=== PATIENT | female | born 1985 | race Caucasian/White ===

== ENCOUNTER 2017-07-20 02:33 | Inpatient (IN) | payer MEDICAID ==
[~2017-07-20] VITALS: Ht 162.6 cm; Wt 76.0 kg
[2017-07-20] VITALS (37 sets, daily range): BP systolic 89–128; BP diastolic 54–83; PULSE 55–86; RESP 14–20; TEMP 97.6–98.2; O2SAT 100
[~2017-07-20 02:33] MED LIST: IBUP600 PO; OXYC1SOL5 PO; PERI8.6T; PERI8.6T PO; PRENCAP6 PO
[2017-07-20] MEDS ORDERED: LACTATED RINGER'S 1000 ML INJ 1,000 ML IV PRN (03:01)
--- NOTE | 2017-07-20 03:08 | PD ---
HPI Chief Complaint contractions Date Seen: Jul 20, 2017 Time Seen: 03:03 Travel History International Travel<30 Days: No Contact w/Intl Traveler<30Days: No Known Affected Area: No History of Present Illness HPI 31uyo at 39w2d comes in with contractions for several hours. Denies rupture of membranes or vaginal bleeding. GBS positive. Uncomplicated course. Weeks Gestation: 39 Para: 2 : 4 Miscarriage: 1 History Past Medical History Medical History: Denies Significant Hx Obstetric History Obstetric History x 2 Past Surgical History Narrative Surgical tonsils Family History Family History: Negative Social History Alcohol Use: No Tobacco Use: No Substance Abuse: No Allergies-Medications (Allergen,Severity, Reaction): Coded Allergies: No Known Allergies (Unverified , 02/13/16) Home Meds Active Scripts Sennosides-Docusate Sodium (Candelaria-Colace 8.6-50 mg) 1 Tab Tab, 2 TAB PO Q12H Y for CONSTIPATION, #30 TAB Prov:Alex Martinez MD 02/15/16 Oxycodone W/ Acetaminophen (Oxycodone/Acetaminophen 5-325 mg/5Ml) 5 mg/325 mg Tab, 1 TAB PO Q4H for moderate pain, #15 TAB Prov:Alex Martinez MD 02/15/16 Ibuprofen (Motrin 600 Mg Tab) 600 Mg Tab, 600 MG PO Q6H for Pain Management, # 30 TAB 1 Refill Prov:Alex Martinez MD 02/15/16 Reported Medications Sennosides-Docusate Sodium (Candelaria-Colace 8.6-50 mg) 1 Tab Tab 02/13/16 Mv & Min W/Fe Fumarat ( 1) Cap, 1 CAP PO DAILY, CAP 02/13/16 Review of Systems Except as stated in HPI: all other systems reviewed are Neg Physical Exam Narrative GENERAL: Well-nourished, well-developed patient. SKIN: Warm and dry. HEAD: Normocephalic and atraumatic. EYES: No scleral icterus. No injection or drainage. ENT: No nasal drainage noted. Mucous membranes pink. Airway patent. NECK: Supple, trachea midline. No JVD. CARDIOVASCULAR: Regular rate and rhythm without murmurs, gallops, or rubs. RESPIRATORY: Breath sounds equal bilaterally. No accessory muscle use. ABDOMEN/GI: Abdomen soft, non-tender, bowel sounds present, no rebound, no guarding Gravid to [38-] weeks size Fundal Height: [-] GENITOURINARY: External Genitalia: intact and normal in appearance BUS glands: [-nl] Cervix: [-] mid Dilatation: [-] 8 Effacement: [-] 90 Station: [-] -2 Presentation: [-vtx] Membranes: [intact or ruptured]intact Uterine Contractions: [-]every 5 FHT's: Category: [-1] Baseline: [140-] Reactive: [-mod] Variability: [-mod] Decels: [-absent] EXTREMITIES: No cyanosis or edema. BACK: Nontender without obvious deformity. No CVA tenderness. NEUROLOGICAL: Awake and alert. Motor and sensory grossly within normal limits. Five out of 5 muscle strength in all muscle groups. Normal speech. Data Data Vital Signs Reviewed: Yes Orders Orders Ob (2e) Additional Admit Info (07/20/17 02:58) Admit To Inpatient (07/20/17 ) Vital Signs (Adult) .Per protocol (07/20/17 03:01) Heart (07/20/17 03:01) Amnioinfusion (07/20/17 03:01) Urinary Catheter Management .ONCE (07/20/17 03:01) Lactated Ringer's 1000 Ml Inj (Lr 1000 M (07/20/17 03:01) Lactated Ringer's 1000 Ml Inj (Lr 1000 M (07/20/17 03:01) Sodium Chlorid 0.9% 500 Ml Inj (Ns 500 M (07/20/17 03:15) Sodium Chlor 0.9% 1000 Ml Inj (Ns 1000 M (07/20/17 03:21) Lidocaine 1% Inj (50 Ml) (Xylocaine 1% I (07/20/17 03:15) Citric Acid-Sodium Citrate Liq (Bicitra (07/20/17 03:15) Ondansetron Inj (Zofran Inj) (07/20/17 03:15) Fentanyl Inj (Fentanyl Inj) (07/20/17 03:15) Fentanyl Inj (Fentanyl Inj) (07/20/17 03:15) Penicillin G Potassium Inj (Pfizerpen-G (07/20/17 03:15) Penicillin G Potassium Inj (Pfizerpen-G (07/20/17 07:15) Complete Blood Count With Diff (07/20/17 03:01) Hold Clot (07/20/17 03:01) Abo/Rh Blood Type (07/20/17 03:01) Drug Screen, Random Urine (07/20/17 03:01) Resp Oxygen Non Rebreathe Mask (07/20/17 ) ^ Epidural / Intrathecal Infus (07/20/17 03:01) Oxytocin 30 Units-500ml Premix (Pitocin (07/20/17 03:15) Lidocaine 1% Inj (50 Ml) (Xylocaine 1% I (07/20/17 03:15) Light Mineral Oil (Muri-Lube Oil) (07/20/17 03:15) Inpatient Certification (07/20/17 ) Group B Strep: Positive MDM Medical Record Reviewed: Yes Plan 31 yo at 39-40 weeks gestation in active labor. Start penicillin for GBS positive status. Dr Rajput immediately contacted for delivery, (covering for Dr Martinez) Diagnosis Diagnosis: Primary Impression: 39 weeks gestation of Additional Impressions: Positive GBS test Precipitate labor, antepartum Rozina Harrell MD Jul 20, 2017 03:08
[2017-07-20] MEDS: LACTATED RINGER'S 1000 ML INJ 1,000 ML IV SCH ×2 (03:09→03:49)
[2017-07-20] MEDS ORDERED: PENICILLIN G POTASSIUM INJ 5,000,000 UNITS in SODIUM CHLORIDE 0.9% INJ 100 ML IV ONE (03:15)
[2017-07-20] MEDS ORDERED: SODIUM CHLORID 0.9% 500 ML INJ 500 ML IV PRN (03:15)
[2017-07-20] MEDS ORDERED: LIDOCAINE HCL 1% 50 ML VIAL I-DERMAL PRN (03:15)
[2017-07-20] MEDS ORDERED: CITRIC ACID-SODIUM CITRATE LIQ 30 ML UDC PO SCH (03:15)
[2017-07-20] MEDS ORDERED: LIDOCAINE HCL 1% 50 ML VIAL INFIL PRN (03:15)
[2017-07-20] MEDS ORDERED: OXYTOCIN 30 UNITS-500ML PREMIX 500 ML IV ONE (03:15)
[2017-07-20] MEDS ORDERED: ONDANSETRON HCL 4 MG/2 ML VIAL IV PUSH PRN (03:15)
[2017-07-20] MEDS ORDERED: MINERAL OIL 10 ML VIAL TOPICAL PRN (03:15)
[2017-07-20 03:16] LABS: AUTOMATED NEUTROPHIL # 9.2 TH/MM3 (1.8-7.7); BASOPHIL # 0.1 TH/MM3 (0-0.2); BASOPHIL % 0.7 % (0.0-2.0); EOSINOPHIL # 0.1 TH/MM3 (0-0.4); EOSINOPHIL % 0.8 % (0.0-4.0); HEMATOCRIT 42.3 % (35.0-46.0); HEMO FLAGS DIFF FINAL; LYMPH % 17.5 % (9.0-44.0); LYMPHOCYTE # 2.2 TH/MM3 (1.0-4.8); MEAN CELL VOLUME 90.7 FL (80.0-100.0); MEAN CORPUSCULAR HEMOGLOBIN 29.4 PG (27.0-34.0); MEAN CORPUSCULAR HGB CONC 32.4 % (32.0-36.0); MONO % 6.7 % (0.0-8.0); NEUT % 74.3 % (16.0-70.0); PLATELET COUNT 215 TH/MM3 (150-450); RED BLOOD COUNT 4.66 MIL/MM3 (4.00-5.30); RED CELL DISTRIBUTION WIDTH 14.3 % (11.6-17.2); WHITE BLOOD COUNT 12.4 TH/MM3 (4.0-11.0)
[2017-07-20] MEDS ORDERED: fentaNYL 2MCG-BUPIV 0.125% INJ 100 ML ONE (03:20)
[2017-07-20] MEDS ORDERED: ePHEDrine/NS 25 MG/5 ML SYR ONE (03:20)
[2017-07-20] MEDS ORDERED: SODIUM CHLOR 0.9% 1000 ML INJ 1,000 ML IV PRN (03:21)
[2017-07-20] MEDS ORDERED: DO NOT ADMINISTER ANTICOAGULANTS PRN (04:15)
[2017-07-20] MEDS ORDERED: ePHEDrine/NS 25 MG/5 ML SYR IV PUSH PRN (04:15)
[2017-07-20] MEDS ORDERED: fentaNYL 2MCG-BUPIV 0.125% 100 ML EPIDURAL SCH (04:15)
[2017-07-20] MEDS ORDERED: NO SYSTEM NARCOTICS PRN (04:15)
--- NOTE | 2017-07-20 05:41 | PD.OB.DELI ---
Weeks gestation: 39 Gest age assessed date: Jul 20, 2017 Gest age assessed time: 05:40 Pt started active labor?: Yes Active labor start date: Jul 20, 2017 Active labor start time: 02:00 Medical induction of labor?: No Artificial rupture of membrane: No Anesthesia: Epidural Episiotomy: None Vaginal Delivery: Normal Presentation: Occiput anterior Nuchal Cord: x1 Delayed cord clamping (45 sec): Yes : Male Delivery date: Jul 20, 2017 Delivery time: 05:19 One Minute : 8 Five Minute : 9 Weight: 7-2 Placenta: Spontaneous delivery Laceration: 1 deg Repair: Chromic interrupted Estimated blood loss: 200cc Rosa Rajput MD Jul 20, 2017 05:41
[2017-07-20] MEDS ORDERED: ALUMINUM/MAGNESIUM/SIMETH 30 ML CUP PO PRN (05:45)
[2017-07-20] MEDS ORDERED: ONDANSETRON ODT 4 MG TAB PO PRN (05:45)
[2017-07-20] MEDS ORDERED: ZOLPIDEM TARTRATE 5 MG TAB PO PRN (05:45)
[2017-07-20] MEDS ORDERED: SODIUM CHLORIDE 0.9% FLUSH 10 ML FLUSH IV FLUSH PRN (05:45)
[2017-07-20] MEDS ORDERED: OXYTOCIN 30 UNITS-500ML PREMIX 500 ML IV SCH (05:45)
[2017-07-20] MEDS ORDERED: PENICILLIN G POTASSIUM INJ 2,500,000 UNITS in SODIUM CHLORIDE 0.9% INJ 100 ML IV SCH (07:15)
[2017-07-20] MEDS ORDERED: SODIUM CHLORIDE 0.9% FLUSH 10 ML FLUSH IV FLUSH SCH (09:00)
[2017-07-20] MEDS: IBUPROFEN 800 MG TAB PO PRN ×2 (09:17→17:26)
[2017-07-20] MEDS: WITCH HAZEL 50%/GLYCERIN 12.5% 40 PAD JAR TOPICAL PRN (09:18)
[2017-07-20] MEDS: BENZOCAINE 20% TOPICAL SPRAY 60 ML CAN TOPICAL PRN (09:18)
[2017-07-20] MEDS: ACETAMINOPHEN 325 MG TAB PO PRN ×2 (11:25→21:26)
[2017-07-20] MEDS ORDERED: oxyCODONE/ACETAMINOPHEN 5 MG/325 MG TAB PO PRN (15:00)
[2017-07-20] MEDS ORDERED: MEASLES, MUMPS, RUBELLA VACCINE 0.5 ML VIAL SQ ONE (16:00)
[2017-07-20] MEDS ORDERED: DIPHTH/TETANUS/ACEL PERTUSSIS (BOOSTER) 0.5 ML VIAL/PFS IM ONE (16:00)
[2017-07-20] MEDS: DOCUSATE SODIUM 50 MG/SENNA 8.6 MG TAB PO PRN (21:26)
[2017-07-21] MEDS: ACETAMINOPHEN 325 MG TAB PO PRN ×5 (03:00→20:47)
[2017-07-21] MEDS: IBUPROFEN 800 MG TAB PO PRN ×3 (03:00→20:47)
[2017-07-21 08:00] VITALS: BP 100/66; PULSE 76; RESP 14; TEMP 98.4
[2017-07-21] MEDS: WITCH HAZEL 50%/GLYCERIN 12.5% 40 PAD JAR TOPICAL PRN (08:19)
[2017-07-21] MEDS: BENZOCAINE 20% TOPICAL SPRAY 60 ML CAN TOPICAL PRN (08:19)
--- NOTE | 2017-07-21 10:44 | HHI.OB ---
Subjective Post Day: 1 Objective Vitals/I&O Vital Signs Date Time Temp Pulse Resp B/P (MAP) Pulse Ox O2 Delivery O2 Flow Rate FiO2 07/21/17 08:00 98.4 76 14 100/66 (77) 07/20/17 19:39 98.0 81 14 112/77 (89) Objective Remarks GENERAL: Well-nourished, well-developed patient. CARDIOVASCULAR: Regular rate and rhythm without murmurs, gallops, or rubs. RESPIRATORY: Breath sounds equal bilaterally. No accessory muscle use. ABDOMEN/GI: Abdomen soft, non-tender. Fundus: Firm, non-tender at umbilicus. GENITOURINARY: Light to moderate bleeding. EXTREMITIES: No cyanosis or edema, non-tender, without signs of DVT. Medications and IVs Current Medications Medications (Trade) Dose Ordered Sig/Renata Route Start Time Stop Time Status Last Admin (NS Flush) 2 ml BID IV FLUSH 07/20/17 09:00 (NS Flush) 2 ml UNSCH PRN IV FLUSH 07/20/17 05:45 (Tylenol) 650 mg Q4H PRN PO 07/20/17 05:45 07/21/17 08:19 (Motrin) 800 mg Q8H PRN PO 07/20/17 05:45 07/21/17 03:00 (Americaine 20% Top Spr) 1 spray Q4H PRN TOPICAL 07/20/17 05:45 07/21/17 08:19 (Tucks Pads) 1 applic QID PRN TOPICAL 07/20/17 05:45 07/21/17 08:19 (Candelaria-Colace) 2 tab Q12H PRN PO 07/20/17 05:45 07/20/17 21:26 (Ambien) 5 mg HS PRN PO 07/20/17 05:45 (Mag-Al Plus Susp Liq) 15 ml Q8H PRN PO 07/20/17 05:45 (Zofran Odt) 4 mg Q6H PRN PO 07/20/17 05:45 (Percocet 5-325 Mg) 1 tab Q4H PRN PO 07/20/17 15:00 07/20/17 14:20 Assessment/Plan Problem List: (1) Normal vaginal delivery ICD Codes: O80 - Encounter for full-term uncomplicated delivery Assessment and Plan pt doing well pain well managed with oral pain medication and bonding with infant routine Discharge Planning [facility] tomorrow Dee Rascon Jul 21, 2017 10:44
[2017-07-21] MEDS: DOCUSATE SODIUM 50 MG/SENNA 8.6 MG TAB PO PRN (12:30)
[2017-07-22] MEDS: ACETAMINOPHEN 325 MG TAB PO PRN ×2 (05:53→11:06)
[2017-07-22] MEDS: IBUPROFEN 800 MG TAB PO PRN (05:53)
--- NOTE | 2017-07-22 11:58 | HHI.OB ---
Subjective Post Day: 2 Objective Objective Remarks GENERAL: Well-nourished, well-developed patient. CARDIOVASCULAR: Regular rate and rhythm without murmurs, gallops, or rubs. RESPIRATORY: Breath sounds equal bilaterally. No accessory muscle use. ABDOMEN/GI: Abdomen soft, non-tender. Fundus: Firm, non-tender at umbilicus. GENITOURINARY: Light to moderate bleeding. EXTREMITIES: No cyanosis or edema, non-tender, without signs of DVT. Medications and IVs Current Medications Medications (Trade) Dose Ordered Sig/Renata Route Start Time Stop Time Status Last Admin (NS Flush) 2 ml BID IV FLUSH 07/20/17 09:00 (NS Flush) 2 ml UNSCH PRN IV FLUSH 07/20/17 05:45 (Tylenol) 650 mg Q4H PRN PO 07/20/17 05:45 07/22/17 11:06 (Motrin) 800 mg Q8H PRN PO 07/20/17 05:45 07/22/17 05:53 (Americaine 20% Top Spr) 1 spray Q4H PRN TOPICAL 07/20/17 05:45 07/21/17 08:19 (Tucks Pads) 1 applic QID PRN TOPICAL 07/20/17 05:45 07/21/17 08:19 (Candelaria-Colace) 2 tab Q12H PRN PO 07/20/17 05:45 07/21/17 12:30 (Ambien) 5 mg HS PRN PO 07/20/17 05:45 (Mag-Al Plus Susp Liq) 15 ml Q8H PRN PO 07/20/17 05:45 (Zofran Odt) 4 mg Q6H PRN PO 07/20/17 05:45 (Percocet 5-325 Mg) 1 tab Q4H PRN PO 07/20/17 15:00 07/20/17 14:20 Assessment/Plan Problem List: (1) Normal vaginal delivery ICD Codes: O80 - Encounter for full-term uncomplicated delivery Assessment and Plan pt doing well pain well managed with oral pain medication routine Discharge Planning dc home today Dee Rascon Jul 22, 2017 11:58
--- NOTE | 2017-07-22 12:01 | HHI.DS ---
Admission Date Jul 20, 2017 at 03:01 Discharge Date: Jul 22, 2017 Admitting Diagnosis term labor +gbs Diagnosis: (1) Normal vaginal delivery ICD Codes: O80 - Encounter for full-term uncomplicated delivery Delivery Date: Jul 20, 2017 Vaginal Delivery: Normal : Male Brief History 31uyo at 39w2d comes in with contractions for several hours. Denies rupture of membranes or vaginal bleeding. GBS positive. Uncomplicated course. Hospital Course term labor treated for + gbs routine care Pt Condition on Discharge: Good Discharge Disposition: Discharge Home Discharge Instructions Diet Instructions: As Tolerated, No Restrictions Additional Diet Instructions: Drink at least 8 - 16 oz bottles of water a day Activities You Can Perform: Shower Only-No Bath, Sitz Bath Activities to Avoid: Lifting/Bending, Sexual Activity Additional Activity Instruc.: No driving until off pain medications Do not lift anything heavier than your baby in an carrier Follow up Referrals: DIRECTOR - 2 Weeks @ [facility] [place] Dee Rascon Jul 22, 2017 12:01
== END 2017-07-22 12:18 | disposition home or self-care (01) | DRG 775 ==
LOC: HOBED 02:33 → H2EB 03:01 → H1EA 08:55
PROVIDERS: ADMIT Obstetrics & Gynecology; ATTEND Obstetrics & Gynecology
PROC: 10E0XZZ Delivery of Products of Conception, External Approach (ICD-10-PCS; principal; 2017-07-20)
PROC: 0HQ9XZZ Repair Perineum Skin, External Approach (ICD-10-PCS; 2017-07-20)
PROC: 3E0R3BZ Introduction of Anesthetic Agent into Spinal Canal, Percutaneous Approach (ICD-10-PCS; 2017-07-20)
PROC: 00HU33Z Insertion of Infusion Device into Spinal Canal, Percutaneous Approach (ICD-10-PCS; 2017-07-20)
DX: O62.3 Precipitate labor (principal); O99.824 Streptococcus B carrier state complicating childbirth; O70.0 First degree perineal laceration during delivery; Z37.0 Single live birth; O69.81X0 Labor and delivery complicated by cord around neck, without compression, not applicable or unspecified; Z3A.39 39 weeks gestation of pregnancy
CPT/HCPCS: 80307; 85025; 86900; 86901; 90715; J2540; J2590; J7120